=== PATIENT | male | born 1985 | race American Indian/Alaskan Native ===

== ENCOUNTER 2017-07-01 09:43 | Emergency (ER) | payer OTHER ==
[2017-07-01 10:15] VITALS: BP 154/84; PULSE 101; RESP 20; TEMP 99; O2SAT 97
--- NOTE | 2017-07-01 10:27 | ED PDOC ---
Upper Extremity Pain/Injury Time Seen by Provider: 07/01/17 10:19 Chief Complaint (Nursing): Upper Extremity Problem/Injury Chief Complaint (Provider): Left hand pain since last night History Per: Patient History/Exam Limitations: no limitations Onset/Duration Of Symptoms: Hrs Current Symptoms Are (Timing): Still Present Additional Complaint(s): PT states last night he punched a wall in attempted to break threw it. PT states him and his friend where having a contest. PT reports localized pain of the 4-5th digit. Pt did not take anything for pain [employer]. no numbness/tingling. Past Medical History Reviewed: Historical Data, Nursing Documentation, Vital Signs Vital Signs: Last Vital Signs Temp 99 F 07/01/17 10:11 Pulse 101 H 07/01/17 10:11 Resp 20 07/01/17 10:11 BP 154/84 H 07/01/17 10:11 Pulse Ox 97 07/01/17 10:11 - Medical History PMH: No Chronic Diseases - Surgical History Surgical History: No Surg Hx - Family History Family History: States: No Known Family Hx - Living Arrangements Living Arrangements: With Family - Social History Current smoker - smoking cessation education provided: No Alcohol: None Drugs: Denies - Home Medications Home Medications: Ambulatory Orders Medication Instructions Recorded Ibuprofen [Motrin Tab] 800 mg PO Q6H PRN #20 tab 07/01/17 - Allergies Allergies/Adverse Reactions: Allergies Allergy/AdvReac Type Severity Reaction Status Date / Time No Known Allergies Allergy Verified 07/01/17 10:24 Review of Systems ROS Statement: Except As Marked, All Systems Reviewed And Found Negative Constitutional: Negative for: Fever, Chills Respiratory: Negative for: Cough, Shortness of Breath Skin: Positive for: Other (Abrasions on left knuckles ) Physical Exam - Reviewed Nursing Documentation Reviewed: Yes Vital Signs Reviewed: Yes - Physical Exam Appears: Positive for: Well, Non-toxic, No Acute Distress Head Exam: Positive for: ATRAUMATIC, NORMAL INSPECTION, NORMOCEPHALIC Skin: Positive for: Warm. Negative for: Normal Color Eye Exam: Positive for: Normal appearance ENT: Positive for: Normal ENT Inspection Neck: Positive for: Normal Respiratory: Negative for: Accessory Muscle Use, Respiratory Distress Pulses-Radial (L): 2+ Pulses-Radial (R): 2+ Back: Positive for: Normal Inspection Extremity: Positive for: Tenderness (4-5th left metacarpals ). Negative for: Normal ROM Neurologic/Psych: Positive for: Alert, Oriented - ECG O2 Sat by Pulse Oximetry: 97 Pulse Ox Interpretation: Normal Medical Decision Making Medical Decision Making: (+) 5th distal metacarpal Fx Splint applied. Disposition - Clinical Impression Clinical Impression: Closed fracture of 5th metacarpal - Patient ED Disposition Is Patient to be Admitted: No Counseled Patient/Family Regarding: Diagnosis, Need For Followup, Rx Given - Disposition Referrals: Ayah Herrmann MD [Staff Provider] - Disposition: Routine/Home Disposition Time: 11:17 Condition: GOOD Prescriptions: Ibuprofen [Motrin Tab] 800 mg PO Q6H PRN #20 tab PRN Reason: Pain Instructions: Hand Fracture (ED) Forms: [facility] ([employer])
--- NOTE | 2017-07-01 13:09 | RAD ---
PROCEDURE: Left Hand Radiographs. HISTORY: Left hand pain, 4-5 metacarpals after punching wal COMPARISON: None. FINDINGS: BONES: Acute fracture distal 5th metacarpal. JOINTS: Soft tissue swelling attests to the acuity of the fracture. SOFT TISSUES: Normal. OTHER FINDINGS: None. IMPRESSION: Acute Distal 5th metacarpal fracture.
== END 2017-07-01 13:01 | disposition home or self-care (01) ==
LOC: H.ER 09:43
DX: S62.307A Unspecified fracture of fifth metacarpal bone, left hand, initial encounter for closed fracture (principal); W22.8XXA Striking against or struck by other objects, initial encounter; Y92.89 Other specified places as the place of occurrence of the external cause